=== PATIENT | male | born 1985 | race Caucasian/White ===

== ENCOUNTER 2016-09-22 16:25 | Emergency (ER) | payer OTHER ==
[~2016-09-22] VITALS: Ht 180.3 cm; Wt 81.6 kg
[2016-09-22 17:38] LABS: BASOPHILS % (AUTO) 0.5 % (0.0-2.0); DIFF TOTAL % 100 %; EOSINOPHILS # (AUTO) 0.7 /CMM (0.0-0.7); EOSINOPHILS % (AUTO) 11.2 % (0.0-6.0); HEMATOCRIT 41 % (39-51); HEMOGLOBIN 13.9 g/dL (13.5-17.5); LYMPHOCYTES # (AUTO) 2.1 /CMM (0.8-4.8); MEAN CORPUSCULAR HEMOGLOBIN 29 PG (26.0-33.0); MEAN CORPUSCULAR HGB CONC 34 g/dl (31.0-36.0); MEAN CORPUSCULAR VOLUME 85 fL (80-96); MONOCYTES # (AUTO) 0.3 /CMM (0.1-1.30); NEUTROPHILS # (AUTO) 3.1 /CMM (1.8-8.9); NEUTROPHILS % (AUTO) 49.3 % (43.0-81.0); PLATELET COUNT (AUTO) 173 /CMM (150-450); RED BLOOD CELL COUNT(AUTO) 4.85 MIL/uL (4.5-6.0); WHITE BLOOD COUNT (AUTO) 6.2 K/uL (4.3-11.0)
[2016-09-22 17:47] LABS: CALCIUM, SERUM 8.6 mg/dL (8.5-10.1); POTASSIUM 4.1 mmol/L (3.5-5.1)
[2016-09-22 17:50] LABS: INR 1.11 (0.87-1.13); PROTHROMBIN TIME 11.7 SECS (9.5-12.7)
[2016-09-22 18:00] LABS: ALBUMIN 3.5 g/dL (3.4-5.0); BILIRUBIN,DIRECT 0.1 mg/dL (0.0-0.2); BILIRUBIN,TOTAL 0.4 mg/dL (0.2-1.0); INDIRECT BILIRUBIN 0.3 mg/dL (0.0-1.1); TOTAL PROTEIN, SERUM 6.6 g/dL (6.4-8.2)
[2016-09-22 18:57] VITALS: BP 118/70
== END 2016-09-22 18:58 | disposition home or self-care (01) ==
LOC: ER 16:27
DX: R60.0 Localized edema (principal); F17.200 Nicotine dependence, unspecified, uncomplicated; F12.10 Cannabis abuse, uncomplicated; F11.10 Opioid abuse, uncomplicated; R79.1 Abnormal coagulation profile; R79.89 Other specified abnormal findings of blood chemistry
CPT/HCPCS: 36415; 71010; 80048; 80076; 82962; 83880; 85025; 85730; 93970; 99285; A4606; Z7610

== ENCOUNTER 2017-09-19 12:50 | Emergency (ER) | payer OTHER ==
[~2017-09-19] VITALS: Ht 177.8 cm; Wt 77.1 kg
[2017-09-19 12:50] VITALS: BP 138/84
== END 2017-09-19 13:20 | disposition home or self-care (01) ==
LOC: ER 12:51
DX: Z02.89 Encounter for other administrative examinations (principal); F17.200 Nicotine dependence, unspecified, uncomplicated; F19.10 Other psychoactive substance abuse, uncomplicated
CPT/HCPCS: A4606; Z7610

== ENCOUNTER 2020-09-13 02:52 | Emergency (ER) | payer OTHER ==
[~2020-09-13] VITALS: Ht 182.9 cm; Wt 90.7 kg
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
[2020-09-13] MEDS ORDERED: ACET-907 PO (04:25)
[2020-09-13 04:38] VITALS: BP 118/68
--- NOTE | 2020-09-13 04:38 | NUR ---
pt is medically stable for d/c. Patient discharged to home in stable condition. Rx and Written and verbal after care instructions given. Patient verbalizes understanding of instruction.
== END 2020-09-13 04:39 | disposition home or self-care (01) ==
LOC: ER 02:59
DX: S20.212A Contusion of left front wall of thorax, initial encounter (principal); S60.222A Contusion of left hand, initial encounter; F17.200 Nicotine dependence, unspecified, uncomplicated; V23.4XXA Motorcycle driver injured in collision with car, pick-up truck or van in traffic accident, initial encounter; Y93.I9 Activity, other involving external motion; Y92.488 Other paved roadways as the place of occurrence of the external cause; Y99.8 Other external cause status
CPT/HCPCS: 71100-TC; 73130-TC

== ENCOUNTER 2022-02-25 03:30 | Emergency (ER) | payer OTHER ==
[~2022-02-25] VITALS: Ht 182.9 cm; Wt 95.3 kg
[~2022-02-25 03:30] MED LIST: ACET-907 PO
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
[2022-02-25] MEDS ORDERED: IBUPROFEN 400 MG TABLET PO ONE (04:00)
--- NOTE | 2022-02-25 04:00 | NUR ---
EMT AT PT'S BEDSIDE FOR WOUND CARE
[2022-02-25] MEDS ORDERED: IBUPROFEN 600 MG TABLET ONE (04:03)
[2022-02-25] MEDS ORDERED: IBUPROFEN 200 MG TABLET ONE (04:03)
--- NOTE | 2022-02-25 04:12 | NUR ---
PATIENT GOING TO CT
--- NOTE | 2022-02-25 04:28 | NUR ---
BACK FROM CT
[2022-02-25] MEDS ORDERED: HYDR-4275 PO (05:26)
[2022-02-25] MEDS ORDERED: HYDROCODONE/APAP 5/325MG TABLET PO ONE (05:30)
[2022-02-25] MEDS ORDERED: HYDROCODONE/APAP 5/325MG TABLET ONE ×2 (05:31→05:34)
--- NOTE | 2022-02-25 05:31 | NUR ---
EMT AT PT'S BEDSIDE FOR SPLINT TO L FINGERS
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
--- NOTE | 2022-02-25 05:48 | NUR ---
Patient discharged to home in stable condition. RX Written and verbal after care instructions given. Patient verbalizes understanding of instruction. pt ambulatory with a steady gait
[2022-02-25 05:49] VITALS: BP 121/74
== END 2022-02-25 05:50 | disposition home or self-care (01) ==
LOC: ER 03:34
DX: S02.40DA Maxillary fracture, left side, initial encounter for closed fracture (principal); S62.617A Displaced fracture of proximal phalanx of left little finger, initial encounter for closed fracture; S00.81XA Abrasion of other part of head, initial encounter; F17.200 Nicotine dependence, unspecified, uncomplicated; Z79.899 Other long term (current) drug therapy; V22.4XXA Motorcycle driver injured in collision with two- or three-wheeled motor vehicle in traffic accident, initial encounter; Y93.89 Activity, other specified; Y92.413 State road as the place of occurrence of the external cause; Y99.8 Other external cause status
CPT/HCPCS: 70450-TC; 70486-TC; 72125-TC; 73130-TC